=== PATIENT | male | born 1940 | race African-American/Black ===

== ENCOUNTER 2017-05-12 15:18 | Emergency (ER) | payer OTHER ==
[~2017-05-12] VITALS: Ht 180.3 cm; Wt 134.9 kg
[~2017-05-12 15:18] MED LIST: ADVAIR 500/501 DISK IH; AMLODIPINE BESYL5 MG PO; CARDIZEM CD240 MG PO; COMBIVENT RESPIM4 GM IH; COUMADIN4 MG PO; COUMADIN5 MG PO; COUMADIN6 MG PO; DIOVAN HCT 31 TABLE1 PO; DIOVAN40 MG PO; FLOMAX0.4 MG PO; KETOCONAZOLE60 GM TP; MOBIC15 MG PO; PERCOCET 5-3251 EACH PO; PERCOCET 5/31 TABLET PO; ROXICODONE5 MG PO; VIAGRA50 MG PO; XARELTO20 MG PO
[2017-05-12 16:16] VITALS: BP 153/80
== END 2017-05-12 16:17 | disposition home or self-care (01) ==
LOC: EME 15:18
PROC: 0HQ1XZZ Repair Face Skin, External Approach (ICD-10-PCS; principal; 2017-05-12)
DX: S01.81XA Laceration without foreign body of other part of head, initial encounter (principal); W01.0XXA Fall on same level from slipping, tripping and stumbling without subsequent striking against object, initial encounter; Z98.890 Other specified postprocedural states; I10 Essential (primary) hypertension; Z85.038 Personal history of other malignant neoplasm of large intestine; Z86.711 Personal history of pulmonary embolism; Z86.718 Personal history of other venous thrombosis and embolism
CPT/HCPCS: 99281; 99283

== ENCOUNTER 2017-07-25 12:40 | Day surgery (SDC) | payer OTHER ==
[~2017-07-25] VITALS: Ht 179.1 cm; Wt 131.5 kg
[~2017-07-25 12:40] MED LIST changes: +DIOVAN HCT 11 TABLET PO; -DIOVAN HCT 31 TABLE1 PO; +TOPAMAX25 MG PO
== END 2017-07-25 14:40 | disposition home or self-care (01) ==
LOC: PAIN 12:40 → SDC 13:00 → PAIN 14:40
DX: M54.16 Radiculopathy, lumbar region (principal); M48.061 Spinal stenosis, lumbar region without neurogenic claudication; M19.012 Primary osteoarthritis, left shoulder; I10 Essential (primary) hypertension; E03.9 Hypothyroidism, unspecified; Z79.891 Long term (current) use of opiate analgesic; Z87.891 Personal history of nicotine dependence
CPT/HCPCS: J1100; J2250

== ENCOUNTER 2017-08-22 11:01 | Day surgery (SDC) | payer OTHER ==
[~2017-08-22] VITALS: Ht 179.1 cm; Wt 131.6 kg
== END 2017-08-22 12:05 | disposition home or self-care (01) ==
LOC: PAIN 11:01
DX: M54.16 Radiculopathy, lumbar region (principal); M99.83 Other biomechanical lesions of lumbar region; M47.816 Spondylosis without myelopathy or radiculopathy, lumbar region; M48.061 Spinal stenosis, lumbar region without neurogenic claudication; G89.29 Other chronic pain; Z85.038 Personal history of other malignant neoplasm of large intestine; Z87.891 Personal history of nicotine dependence; Z96.659 Presence of unspecified artificial knee joint
CPT/HCPCS: J1100; J2250

== ENCOUNTER 2017-08-28 19:53 | Emergency (ER) | payer OTHER ==
[~2017-08-28] VITALS: Ht 177.8 cm; Wt 133.4 kg
[2017-08-28] MEDS ORDERED: PERCOCET 5/31 TABLET PO (21:06)
[2017-08-28 21:26] VITALS: BP 129/55
== END 2017-08-28 21:27 | disposition home or self-care (01) ==
LOC: EME 19:53
DX: S46.911A Strain of unspecified muscle, fascia and tendon at shoulder and upper arm level, right arm, initial encounter (principal); X58.XXXA Exposure to other specified factors, initial encounter; Y93.H2 Activity, gardening and landscaping; Z85.038 Personal history of other malignant neoplasm of large intestine; N40.0 Benign prostatic hyperplasia without lower urinary tract symptoms; Z96.653 Presence of artificial knee joint, bilateral
CPT/HCPCS: 73030; 99281; 99283

== ENCOUNTER 2017-11-30 18:58 | Emergency (ER) | payer OTHER ==
[~2017-11-30] VITALS: Ht 177.8 cm; Wt 132.2 kg
[2017-11-30] MEDS ORDERED: VALIUM2 MG PO (22:29)
[2017-11-30] MEDS ORDERED: PERCOCET 5/31 TABLET PO (22:29)
[2017-11-30 23:01] VITALS: BP 129/74
== END 2017-11-30 23:02 | disposition home or self-care (01) ==
LOC: EME 18:58
DX: M54.12 Radiculopathy, cervical region (principal); N40.0 Benign prostatic hyperplasia without lower urinary tract symptoms; Z85.038 Personal history of other malignant neoplasm of large intestine; Z86.711 Personal history of pulmonary embolism; Z86.718 Personal history of other venous thrombosis and embolism; Z96.653 Presence of artificial knee joint, bilateral
CPT/HCPCS: 70450; 72125; 99281; 99284